=== PATIENT | female | born 1990 ===

== ENCOUNTER 2021-07-15 01:40 | Inpatient (IN) ==
[~2021-07-15 01:40] MED LIST: *HR* Nalbuphine 10 MG/ML AMPUL IV PRN; Azithromycin 500 MG in 0.9 % Sodium Chloride 250 ML IVPB PRN; Famotidine 20 MG/2 ML VIAL IVP PRN; Metoclopramide 10 MG/2 ML VIAL IVP PRN; Naloxone 0.4 MG/ML INJ IVP PRN; Ondansetron 4 MG/2 ML VIAL IVP PRN
[2021-07-15] MEDS ORDERED: Ringers Solution, Lactated 1,000 ML IVC SCH ×2 (01:45→05:39)
[2021-07-15 02:14] LABS: Basophils # 0.1 K/mcL (0.0-0.2); Basophils % 0.4 %; Eosinophils # 0.1 K/mcL (0.0-0.6); Eosinophils % 0.9 %; Hematocrit 36.5 % (35.3-44.9); Hemoglobin 11.8 g/dL (11.5-15.4); Immature Granulocytes % 1.1 % (0-4); Lymphocytes % 17.1 %; Mean Corpuscular HGB Conc 32.3 g/dL (31.6-35.5); Mean Corpuscular Hemoglobin 29.1 pg (28.0-33.3); Mean Corpuscular Volume 90.1 fL (83.0-100.0); Mean Platelet Volume 10.7 fL (9.4-12.4); Monocytes # 1.1 K/mcL (0.0-1.3); Monocytes % 9.2 %; Neutrophils # 8.3 K/mcL (1.6-8.9); Platelet Count 194 K/mcL (140-400); Red Blood Count 4.05 M/mcL (3.82-4.97); Red Cell Distribution Width 13.9 % (11.5-14.5); Segmented Neutrophils % 71.3 %; White Blood Count 11.6 K/mcL (4.3-11.1)
[2021-07-15] MEDS ORDERED: CeFAZolin Syr 3,000MG/30 ML 3,000 MG/30 ML SYRINGE IVPB ONE (02:14)
[2021-07-15 02:21] LABS: Amphetamine Screen,Urine Negative ng/mL (Cutoff=1000); Barbiturate Screen,Urine Negative ng/mL (Cutoff=200); Benzodiazepines Screen,Urine Negative ng/mL (Cutoff=200); Cannabinoid Screen,Urine Negative ng/mL (Cutoff = 50); Cocaine Screen,Urine Negative ng/mL (Cutoff= 300); Opiate Screen,Urine Negative ng/mL (Cutoff=300); Phencyclidine Screen,Urine Negative ng/mL (Cutoff=25)
[2021-07-15] MEDS ORDERED: Oxytocin 20 units/ LR 1000 mL 20 UNIT/1,000 ML BAG IVC ONE ×2 (02:21→05:09)
[2021-07-15] MEDS ORDERED: *HR* FentaNYL (PF) 100 MCG/2 ML VIAL ONE (02:26)
[2021-07-15] MEDS ORDERED: *HR* Morphine Sulfate/PF 10 MG/10 ML AMPUL ONE (02:26)
[2021-07-15 02:47] LABS: Influenza A PCR Negative (Negative); Influenza B PCR Negative (Negative); Resp. Syncytial Virus PCR Negative (Negative); SARS-CoV-2 by PCR (In House) Negative (Negative)
[2021-07-15] MEDS ORDERED: Ondansetron 4 MG/2 ML VIAL ONE (03:00)
[2021-07-15] MEDS ORDERED: Acetaminophen IV 1,000 MG/100 ML BAG IVPB ONE (03:01)
[2021-07-15] MEDS ORDERED: Naloxone 0.4 MG/ML INJ IVP PRN (03:09)
[2021-07-15] MEDS ORDERED: *HR* FentaNYL (PF) 100 MCG/2 ML VIAL IVP PRN (03:09)
[2021-07-15] MEDS ORDERED: *HR* OxyCODONE Immed Rel 5 MG TABLET PO PRN ×2 (03:09→05:39)
[2021-07-15] MEDS ORDERED: Ondansetron 4 MG/2 ML VIAL IVP PRN ×2 (03:09→05:39)
[2021-07-15] MEDS ORDERED: Promethazine 6.25 MG in Water for inj. (sterile) 20 ML IVPB PRN (03:09)
[2021-07-15] MEDS ORDERED: Ketorolac 30 MG/ML VIAL ONE (03:41)
[2021-07-15] MEDS ORDERED: Oxytocin 20 units/ LR 1000 mL 20 UNIT/1,000 ML BAG IVC SCH (05:39)
[2021-07-15] MEDS ORDERED: Rho Immune Globulin 1,500 UNIT SYRINGE IM ONE ×2 (05:39→10:17)
[2021-07-15] MEDS ORDERED: Simethicone 80 MG TAB.CHEW PO PRN (05:39)
[2021-07-15] MEDS ORDERED: Metoclopramide 10 MG/2 ML VIAL IVP PRN (05:39)
[2021-07-15] MEDS: Ibuprofen 600 MG TABLET PO SCH ×2 (09:13→17:05)
[2021-07-15] MEDS: Acetaminophen 325 MG TABLET PO SCH ×2 (09:13→17:06)
[2021-07-15] MEDS: Prenatal Vit/FA 1 EACH TABLET PO SCH (09:13)
[2021-07-15] MEDS: metroNIDAZOLE 500 MG TABLET PO SCH ×3 (09:14→19:32)
[2021-07-15] MEDS: cephALEXin 500 MG CAPSULE PO SCH ×3 (09:14→19:32)
[2021-07-16] MEDS: Acetaminophen 325 MG TABLET PO SCH ×2 (00:10→08:48)
[2021-07-16] MEDS: Ibuprofen 600 MG TABLET PO SCH ×2 (00:11→08:48)
[2021-07-16 00:38] VITALS: O2SAT 98
[2021-07-16 00:45] LABS: Basophils % 0.3 %; Eosinophils # 0.1 K/mcL (0.0-0.6); Eosinophils % 0.9 %; Hematocrit 31.8 % (35.3-44.9); Hemoglobin 10.4 g/dL (11.5-15.4); Immature Granulocytes % 0.7 % (0-4); Lymphocytes % 10.6 %; Mean Corpuscular HGB Conc 32.7 g/dL (31.6-35.5); Mean Corpuscular Hemoglobin 29.6 pg (28.0-33.3); Mean Corpuscular Volume 90.6 fL (83.0-100.0); Mean Platelet Volume 10.7 fL (9.4-12.4); Monocytes # 0.7 K/mcL (0.0-1.3); Monocytes % 6.9 %; Neutrophils # 7.9 K/mcL (1.6-8.9); Platelet Count 163 K/mcL (140-400); Red Blood Count 3.51 M/mcL (3.82-4.97); Red Cell Distribution Width 14.1 % (11.5-14.5); Segmented Neutrophils % 80.6 %; White Blood Count 9.8 K/mcL (4.3-11.1)
[2021-07-16 07:59] VITALS: BP 108/67; PULSE 69; TEMP 98.3
[2021-07-16] MEDS: cephALEXin 500 MG CAPSULE PO SCH ×2 (08:48→14:57)
[2021-07-16] MEDS: Prenatal Vit/FA 1 EACH TABLET PO SCH (08:48)
[2021-07-16] MEDS: metroNIDAZOLE 500 MG TABLET PO SCH ×2 (08:49→14:57)
== END 2021-07-16 19:36 | disposition home or self-care (01) | DRG 788 ==
LOC: 1NENULAB → 1NENUOBS 05:58
PROVIDERS: ADMIT Student in an Organized Health Care Education/Training Program; ATTEND Student in an Organized Health Care Education/Training Program